=== PATIENT | female | born 1970 | race Caucasian/White ===

== ENCOUNTER 2019-10-15 10:38 | Inpatient (IN) | payer BC ==
[2019-10-15 11:21] LABS: ABS Eosinophils 0.1 10^3/ul (0-0.6); ABS Lymphocytes 1.3 10^3/ul (1.0-4.8); ABS Monocytes 0.4 10^3/ul (0-0.8); ABS Neutrophils 4.5 10^3/ul (1.5-7.7); Eosinophil % 2.3 %; Hematocrit 43 % (35-47); Hemoglobin 15.1 g/dL (12.0-16.0); Lymphocyte % 19.9 %; Mean Corpuscular HGB Conc 35 g/dL (31-36); Mean Corpuscular Hemoglobin 31 pg (27-31); Mean Corpuscular Volume 90 fL (80-97); Mean Platelet Volume 8.5 fL (7.4-10.4); Nucleated Red Blood Cells % 0.1; Platelet Count 217 10^3/uL (150-450); Red Cell Distribution Width 13 % (10-15); White Blood Count 6.4 10^3/uL (3.5-10.8)
[2019-10-15] MEDS ORDERED: Aspirin 81 mg CHEW TAB* 81 MG TAB.CHEW PO ONE (11:22)
--- NOTE | 2019-10-15 11:26 | ED ---
HPI Chest Pain - HPI Summary HPI Summary: The patient is a 49-year-old female presenting to [facility] with a chief complaint of an episode of chest pain two days ago. She reports that she had been recently sick with bronchitis which mostly resolved last week with medications, but she still had a lingering cough. Two days ago, she was coughing and had a sudden onset chest pain radiating into the upper arms described as tightness in the arteries and to the wrists described as on fire someone holding them as tightly as they could. She developed diaphoresis and nausea, and she saw that her O2 levels were low via at-home pulse ox monitor. She lied down on the floor in front of a fan before the chest pain resolved after 10-12 minutes. She has not experienced the pain since the isolated episode, but she did go to her primary care providers office this morning, and they noticed EKG changes from her prior a year ago when she had a negative cardiac workup with a Holter monitor for palpitations she had been experienced. She is feeling well in the ED now without any complaints. She denies any calf pain or swelling. No past medical history of cardiac disease, hypertension, diabetes. No history of blood clots, although she notes recent history of worsening varicose veins more on the left lower extremity. Nonsmoker, no EtOH, no substance use. Medications reviewed. Allergies noted. - History of Current Complaint Chief Complaint: EDChestPainROMI Time Seen by Provider: 10/15/19 10:43 Hx Obtained From: Patient Hx Last Menstrual Period: tubal ligation Onset/Duration: Started Days Ago, Resolved Timing: Lasting Minutes Initial Severity: Severe Current Severity: None Pain Intensity: 0 Pain Scale Used: 0-10 Numeric Chest Pain Location: Diffuse Chest Pain Radiates: Yes Chest Pain Radiates To:: Arm - bilateral, into wrists Character: Cough, Productive, Tightness Aggravating Factor(s): Nothing - thought secondary to cough Alleviating Factor(s): Rest, Spontaneous Resolution Associated Signs and Symptoms: Positive: Chest Pain, Diaphoresis, Nausea, Cough. Negative: Calf Pain/Swelling - Allergy/Home Medications Allergies/Adverse Reactions: Allergies Allergy/AdvReac Type Severity Reaction Status Date / Time codeine AdvReac Severe Nausea And Verified 10/15/19 12:13 Vomiting prochlorperazine AdvReac Severe See Comment Verified 10/15/19 12:13 Home Medications: Home Medications Acetaminophen TAB* [Tylenol TAB*] 325 mg PO Q4H PRN 10/15/19 [History Confirmed 10/15/19] Ibuprofen TAB* [Advil TAB*] 200 mg PO Q6H PRN 10/15/19 [History Confirmed ] PMH/Surg Hx/FS Hx/Imm Hx Endocrine/Hematology History: Denies: Hx Diabetes, Hx Thyroid Disease Cardiovascular History: Denies: Hx Hypercholesterolemia, Hx Hypertension, Hx Pacemaker/ICD Respiratory History: Denies: Hx Asthma, Hx Chronic Obstructive Pulmonary Disease (COPD) GI History: Denies: Hx Ulcer History: Denies: Hx Dialysis, Hx Renal Disease Sensory History: Denies: Hx Hearing Aid Psychiatric History: Denies: Hx Panic Disorder - Cancer History Hx Chemotherapy: No Hx Radiation Therapy: No - Surgical History Surgical History: Yes Surgery Procedure, Year, and Place: tubal ligation; C-sections; arthroscopic knee L; ectopic D&C; TONSILECTOMY - Immunization History Immunizations Up to Date: Yes Infectious Disease History: No Infectious Disease History: Denies: Hx Clostridium Difficile, Hx Hepatitis, Hx Human Immunodeficiency Virus (HIV), Hx of Known/Suspected MRSA, Hx Shingles, Hx Tuberculosis, Hx Known/ Suspected VRE, Hx Known/Suspected VRSA, History Other Infectious Disease, Traveled Outside the [place] in Last 30 Days - Family History Known Family History: Negative: Cardiac Disease, Hypertension, Diabetes - Social History Alcohol Use: None Hx Substance Use: No Substance Use Type: Reports: None Hx Tobacco Use: No Smoking Status (MU): Never Smoked Tobacco Have You Smoked in the Last Year: No Review of Systems Positive: Skin Diaphoresis Positive: Chest Pain Positive: Cough Positive: Nausea Negative: Myalgia - calves, Edema All Other Systems Reviewed And Are Negative: Yes Physical Exam - Summary Physical Exam Summary: Constitutional: Well-developed, Well-nourished, Alert. (-) Distressed Skin: Warm, Dry HENT: Normocephalic; Atraumatic Eyes: Conjunctiva normal Neck: Musculoskeletal ROM normal neck. (-) JVD, (-) Stridor, (-) Tracheal deviation Cardio: Rhythm regular, rate normal, Heart sounds normal; Intact distal pulses; The pedal pulses are 2+ and symmetric. Radial pulses are 2+ and symmetric. (-) Murmur Pulmonary/Chest wall: Effort normal. (-) Respiratory distress, (-) Wheezes, (-) Rales Abd: Soft, (-) tenderness, (-) Distension, (-) Guarding, (-) Rebound Musculoskeletal: (-) Edema Lymph: (-) Cervical adenopathy Neuro: Alert, Oriented x3 Psych: Mood and affect Normal Triage Information Reviewed: Yes Vital Signs On Initial Exam: Initial Vitals Temp Pulse Resp BP Pulse Ox 97.2 F 85 18 179/99 99 10/15/19 10:40 10/15/19 10:40 10/15/19 10:40 10/15/19 10:40 10/15/19 10:40 Vital Signs Reviewed: Yes Procedures - Sedation Patient Received Moderate/Deep Sedation with Procedure: No Diagnostics - Vital Signs Vital Signs Temp Pulse Resp BP Pulse Ox 10/15/19 11:11 16 175/83 10/15/19 11:09 29 10/15/19 10:40 97.2 F 85 18 179/99 99 - Laboratory Result Diagrams: 10/15/19 11:08 10/15/19 11:08 Lab Statement: Any lab studies that have been ordered have been reviewed, and results considered in the medical decision making process. - Radiology CXR Radiology Interpretation Completed By: Radiologist Summary of Radiographic Findings: Impression: No radiographic evidence for acute cardiopulmonary abnormality on this portable chest x-ray. Dr. Eason has reviewed this report. - EKG 1043 Cardiac Rate: NL EKG Rhythm: Sinus Rhythm Summary of EKG Findings: An EKG at 1043 reveals sinus rhythm at rate of 83 BPM. T wave inversions in aVL and V2-V6. Dr. Eason has reviewed and interpreted this EKG. Re-Evaluation - Re-Evaluation First Eval Re-Evaluation Time: 12:00 Comment: We discussed results and plan for admsision. Patient agreeable with plan. Chest Pain Course/Dx - Course Course Of Treatment: 49 y/o female presenting with isolated episode of CP radiating into the arms and wrists accompanied by nausea and diaphoresis occurring two days ago and lasting for 10-12 minutes before spontaneous resolution. No prior cardiac history. Recently had bronchitis which she attributed her symptoms to. Physical exam is negative for acute abnormalities. An EKG at 1043 reveals sinus rhythm at rate of 83 BPM, T wave inversions in aVL and V2-V6. Patient administered ASA. Blood work significant for elevated troponin of 0.35. Dr. Manuel from cardiology will consult for the patient. Dr. Christina from the hospitalist services accepts the patient for admission. Dr. Montenegro from interventional cardiology will consult for the patient instead of Dr. Manuel. IV access obtained. Patient placed on Heparin drip. CXR is negative for acute cardiopulmondary disease. Patient understands and agrees with plan. She is stable at this time. - Diagnoses Provider Diagnoses: NSTEMI (non-ST elevated myocardial infarction) - Provider Notifications Discussed Care Of Patient With: Robert Manuel - cardiology Time Discussed With Above Provider: 11:50 Instructed by Provider To: Other - I discussed the patients case with Dr. Manuel , who will consult for the patient. Dr. Christina accepts the patient for admission [[id number]]. Dr. Montenegro, interventional cardiology, will consult for the patient [[id number]]. Discharge ED - Sign-Out/Discharge Documenting (check all that apply): Patient Departure - Patient accepted for admission by Dr. Christina. - Discharge Plan Condition: Stable Disposition: ADMITTED TO [facility] Referrals: Nikita Kinsey MD [Primary Care Provider] - - Billing Disposition and Condition Condition: STABLE Disposition: Admitted to [facility] - Attestation Statements Document Initiated by Donna: Yes Documenting Scribe: Amber Dobson Provider For Whom Donna is Documenting (Include Credential): DO Kal Rizoibyesenia Attestation: Amber Noel scribed for Dr. Duane Eason DO on 10/15/19 at 1300. Scribe Documentation Reviewed: Yes Provider Attestation: The documentation as recorded by the Amber ruggiero accurately reflects the service I personally performed and the decisions made by me, Dr. Duane Eason DO Status of Donna Document: Viewed
[2019-10-15 11:27] LABS: INR 0.91 (0.82-1.09)
[2019-10-15 11:46] LABS: Troponin I 0.35 ng/mL (<0.03)
[2019-10-15 11:50] LABS: Albumin 4.6 g/dL (3.2-5.2); Albumin/Globulin Ratio 1.5 (1-3); BUN/Creatinine Ratio 25.7 (8-20); Calcium 9.1 mg/dL (8.6-10.3); EGFR African American 108.1 (>60); EGFR Non-African American 89.3 (>60); Globulin 3.1 g/dL (2-4); Potassium 3.6 mmol/L (3.5-5.0); Total Protein 7.7 g/dL (6.4-8.9)
[2019-10-15] MEDS ORDERED: Heparin DRIP 25,000 UNITS(*) 25,000 UNITS/500 ML BAG IV SCH (12:00)
[2019-10-15] MEDS ORDERED: Acetaminophen TAB* 325 MG PO PRN (12:24)
[2019-10-15] MEDS ORDERED: Metoprolol Tartrate TAB* 25 MG PO ONE (12:25)
[2019-10-15] MEDS ORDERED: Atorvastatin* 80 MG TAB PO ONE (12:25)
[2019-10-15 12:40] LABS: Activated Partial Thrombo Time 36.6 seconds (26.0-38.0)
[2019-10-15] MEDS ORDERED: Heparin VIAL(*) 5000 UNITS/ML VIAL (FIVE THOUSAND) IV SCH (13:00)
[2019-10-15] MEDS ORDERED: fentaNYL* 50 MCG/ML 2 ML VIAL (100 MCG VIAL) ONE (13:54)
[2019-10-15] MEDS ORDERED: VERAPAMIL 2.5 MG/ML 2 ML VIAL ** 5 mg/2 ml ONE (13:55)
[2019-10-15] MEDS ORDERED: Iohexol 350 (CONTRAST) 200 ML MDV IV ONE ×2 (13:55→13:56)
[2019-10-15] MEDS ORDERED: Heparin(*) 1000 UNIT/ML 10 ML VIAL CATH LAB IV ONE (13:55)
[2019-10-15] MEDS ORDERED: Midazolam* 1 MG/ML 5 ML VIAL (5 MG) ONE (13:55)
[2019-10-15] MEDS ORDERED: Lidocaine 1% INJ* 10 MG/ML 30 ML SDV ONE (13:55)
[2019-10-15] MEDS ORDERED: Heparin 2 UNITS/ML IVPREMIX* 2,000 ML IV ONE (13:55)
[2019-10-15] MEDS ORDERED: nitroGLYCERIN DRIP* 25,000 MCG/250 ML BTL ONE (13:55)
[2019-10-15] MEDS ORDERED: NS 0.9% 1000 ML** 1,000 ML IV SCH (15:15)
--- NOTE | 2019-10-15 16:00 | ECHO ---
*[facility]* [place] [address] Fax #: [phone] Transthoracic Echocardiogram Patient: Criss Manley : 1970 Study Date: 10/15/2019 Age: 49 Gender: F HR: 79 bpm Height: 68 in /172.7 cm BSA: 2.21 m^2 Weight: 239.5 lb /108.9 kg BMI: 36.5 kg/m^2 *Butadiene Converter Operator: * Olga Ceja *Referring Physician: * Olesya MontelongoReading Physician: * Robert Manuel MD Indications: Chest Pain, unspecified. History: Risk factors: Family history is significant for coronary artery disease. Conclusions Summary: - Left ventricle: Systolic function is normal. The estimated ejection fraction is 55-60%. Wall motion is normal; there are no regional wall motion abnormalities. - Right ventricle: Systolic function is normal. - Mitral valve: There is trace regurgitation. - Aortic valve: There is no evidence of stenosis. - Tricuspid valve: There is trace regurgitation. - Pulmonary arteries: Systolic pressure can not be accurately estimated. - Study data: No prior study is available for comparison. Study data: Transthoracic echocardiogram. Procedure: Transthoracic echocardiography was performed. Image quality was good. Complete 2D, spectral Doppler, and color flow Doppler. Location: Bedside. Patient status: Inpatient. Patient room number: ED 9. No prior study is available for comparison. Rhythm: Normal sinus rhythm. Findings Left ventricle: The cavity size is normal. Wall thickness is normal. Systolic function is normal. The estimated ejection fraction is 55-60%. Wall motion is normal; there are no regional wall motion abnormalities. Left ventricular diastolic function parameters are normal. Right ventricle: The cavity size is normal. Systolic function is normal. Ventricular septum: The ventricular septum is normal. Left atrium: The atrium is normal in size. Right atrium: The atrium is normal in size. Atrial septum: No defect or patent foramen ovale is identified. Mitral valve: The valve is structurally normal. There is no evidence of stenosis. There is trace regurgitation. Aortic valve: The valve is trileaflet. The leaflets are normal thickness. There is no evidence of stenosis. There is no significant regurgitation. Tricuspid valve: The valve is structurally normal. There is no evidence of stenosis. There is trace regurgitation. Pulmonic valve: The valve is structurally normal. There is no evidence of stenosis. There is trace regurgitation. Aorta: The aortic root appears normal. The aortic arch appears normal. Pericardium: There is no significant pericardial effusion. Pulmonary arteries: Systolic pressure can not be accurately estimated. Systemic veins: Inferior vena cava: The vessel is normal in size. There is (>= 50%) respiratory change in the IVC dimension. Measurements Left ventricle Value Ref Right atrium Value Ref APPLE, LAX 4.6 cm 3.8 - SI dim, ES 4.5 cm 3.4 - 5.3 5.2 ML dim, ES, A4C 3.7 cm 2.6 - 4.4 ESD, LAX (H) 3.6 cm 2.2 - SI dim, ES, A4C 4.5 cm 3.4 - 5.3 3.5 FS, LAX (L) 21 % Aortic valve Value Ref PW, ED, LAX (H) 1.2 cm 0.6 - Peak v, S 1.42 m/sec --------- 0.9 VTI, S 26.5 cm --------- FS (L) 21 % Mean grad, S 4.0 mm Hg --------- Mid-wall FS 10 % -------- Peak grad, S 8.0 mm Hg --------- PW, ED (H) 1.2 cm 0.6 - CHAITANYA, VTI 2.96 cm^2 --------- 0.9 CHAITANYA, Vmax 2.50 cm^2 --------- PW/ID, ED 0.26 -------- E', lat humphrey, TDI 11.4 cm/sec >=10.0 Mitral valve Value Ref E/e', lat humphrey, TDI 8 -------- Peak E 0.9 m/sec ------ --- E', med humphrey, TDI 8.7 cm/sec >=7.0 Peak A 0.88 m/sec --- ------ E/e', med humphrey, TDI 10 -------- Decel time 201 ms ------ --- E', avg, TDI 10.1 cm/sec -------- Peak grad, D 3.2 mm Hg ------ --- E/e', avg, TDI 9 <=14 Peak E/A ratio 1 --- ------ LVOT Value Ref Pulmonic valve Value Ref Diam, S 2.00 cm -------- Peak v, S 0.79 m/sec --------- Area 3.1 cm^2 -------- Peak grad, S 3.0 mm Hg --------- Peak ryan, S 1.13 m/sec -------- Peak grad, S 5 mm Hg -------- Aortic root Value Ref Mean grad, S 3 mm Hg -------- Root diam 3.0 cm <4.3 SV 79 ml -------- Ascending aorta Value Ref Ventricular septum Value Ref AAo AP diam, S 3.3 cm --------- IVS, ED (H) 1.0 cm 0.6 - 0.9 Aortic arch Value Ref Arch diam 2.1 cm --------- Right ventricle Value Ref APPLE, LAX 3.2 cm -------- Decending aorta Value Ref APPLE minor ax, A4C 3.1 cm 1.9 - Mao peak ryan 0.77 m/sec --------- mid 3.5 Inferior vena cava Value Ref Left atrium Value Ref Diam 2.0 cm --------- ML dim, A4C 4.2 cm -------- SI dim, A4C 5.4 cm -------- Vol/bsa, ES, 1-p 24 ml/m^2 11 - 40 A4C Vol/bsa, ES, A/L 30 ml/m^2 16 - 34 Legend: (L) and (H) david values outside specified reference range. Prepared and electronically signed by Robert Manuel MD 10/15/2019 15:59
[2019-10-15] MEDS ORDERED: Clopidogrel TAB* 300 MG PO ONE (16:24)
--- NOTE | 2019-10-15 16:48 | HP ---
CC: Dr. Kinsey; Dr. Manuel HISTORY AND PHYSICAL: DATE OF ADMISSION: 10/15/19 TIME OF EVALUATION: 12:15 p.m. PRIMARY CARE PROVIDER: Dr. Kinsey. CONSULTING STRAPPING MACHINE TENDER: Dr. Manuel. CHIEF COMPLAINT: Chest pain. HISTORY OF PRESENT ILLNESS: Ms. Manley is a 49-year-old female with a past medical history of obesi ty who presented to the emergency room after an episode of chest pain 2 days ago. The patient states that she recently completed a course of Augmentin, prednisone and Ventolin for bronchitis. She stat es that she still had a lingering cough and on 10/13/19, she had an episode of coughing and that was followed by retrosternal chest pain that she described as a severe twisting sensation and that radiat ed to both her arms especially her wrists. This was followed by diaphoresis, nausea, and the patient used her son's pulse ox monitor and saw that her oxygen levels were low. She lied on the floor in f ront of a fan and after 10 to 15 minutes, the pain subsided. She initially thought about calling 911 , but as the pain improved, she did not do it. On 10/14/19, she went to work and saw the school nurse and she was advised to see a physician and the patient went to see her PCP today and was told to come to the emergency room as her EKG had shown ne w changes. The patient states that she never had the cardiac workup in the past except for a Holter monitor last year when she was having palpitations and she states that the Holter was negative. She denies any other episodes of chest pain after the one on Monday. There is no shortness of breath, palpitations, dizziness, lightheadedness, diarrhea or urinary compla ints. The patient denies any recent traveling via bus or plane and no long drives. PAST MEDICAL HISTORY: Osteoarthritis. MEDICATION LIST: 1. Acetaminophen 325 mg p.o. q.4 hours p.r.n. pain or fever. 2. Ibuprofen 200 mg p.o. q.6 hours p.r.n. pain. 3. Fluoxetine 10 mg p.o. daily. 4. Meloxicam 15 mg p.o. daily. ALLERGIES: With CODEINE, the patient had nausea and vomiting and with PROCHLORPERAZINE, the patient had dyskinesia. FAMILY HISTORY: Her parents are alive and healthy. Her grandfather had a history of diabetes and ne eded a pacemaker. SOCIAL HISTORY: She denies history of tobacco, alcohol, or drug use. 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 Surrogate decision maker is her , Orestes Manley, phone number is [phone]. REVIEW OF SYSTEMS: A 14-point review of systems is performed and all the pertinent negatives and pos itives findings are in the HPI. PHYSICAL EXAMINATION GENERAL: The patient is a pleasant, middle-aged lady, sitting up in the ED stretcher, in no acute di stress. VITAL SIGNS: Temperature 97, heart rate 83, respiratory rate is 18, oxygen saturation 99% on room ai r, blood pressure is 153/89. HEENT: Pupils are equal. Moist mucous membranes. CHEST: Breath sounds present bilaterally with no added sounds. CVS: Normal S1, S2. Regular rate and rhythm. ABDOMEN: Soft, obese, nontender, nondistended. Bowel sounds are present. EXTREMITIES: No edema. No calf tenderness. NEUROLOGIC: She is alert and oriented x3. Able to move all 4 extremities. DIAGNOSTIC STUDIES/LAB DATA: The patient had a CBC that showed WBC of 6.4, hemoglobin of 15.1, francine tocrit of 43, platelets of 217 with 70% neutrophils. INR was 0.91, APTT 36. Chemistry showed the so dium of 142, potassium 3.6, chloride 106, bicarb 28, BUN of 18, creatinine of 0.7, glucose 82, calciu m 9.1. LFTs were normal. First troponin was 0.35. EKG done on 10/15/19 at 10:43 a.m. shows sinus rhythm at 83 beats per minute with mild T-wave inversi ons in V2 through V6 and as per ED provider, those are new when compared to her prior EKG in her PCP' s office in the past. Chest x-ray showed no radiographic evidence for acute cardiopulmonary abnormality. ASSESSMENT AND PLAN: Ms. Manley is a 49-year-old female with a past medical history of obesity who presented to the emergency room 2 days after an episode of severe chest pain, found to have new ische susan EKG changes and troponin elevation, suggestive of non-ST elevation myocardial infarction. 1. Non-ST elevation myocardial infarction. The patient will be admitted to medical floor. She alre juan received aspirin. She will be started on heparin drip as well as metoprolol and atorvastatin. C ardiology consultation was requested with Dr. Manuel and she will also have an echocardiogram. I will keep her n.p.o. for now as she will likely need a heart cath in the near future. If her cardiac cat h is negative, we may need to broaden her investigations. She had a recent respiratory infection, th is could be myocarditis or she may have Takotsubo, but considering her presentation, the principal di agnosis at this time is a non-ST elevation myocardial infarction. 2. DVT prophylaxis. The patient has a score of 2 and she is already on a heparin drip. 3. Code status is full. TIME SPENT: Approximately 60 minutes was spent with patient interview, medical records review, physi benjamin examination to complete this admission, more than half of this time was spent [id number] with t he patient in coordination of care. [id number]/[facility] #: [id number]
[2019-10-15] MEDS ORDERED: Ticagrelor* 90 MG TAB PO ONE (16:59)
--- NOTE | 2019-10-15 18:10 | CONS ---
CC: Dr. Nikita Kinsey * CARDIOLOGY CONSULTATION: DATE OF CONSULT: 10/15/19 REASON FOR CONSULT: Asked to see the patient by Dr. Herman after the patient was sent to the emergency room for an abnormal EKG with prior chest discomfort 2 days ago. HISTORY OF PRESENT ILLNESS: The patient is a pleasant 49-year-old white female with no prior known cardiac history. Specifically, she denies any history of myocardial infarction, congestive heart failure, or significant heart rhythm disturbance. She did have a Holter back a year ago that showed only infrequent PACs. She states that on Monday, she literally was getting ready to take her daughter somewhere and bent over. She had been sick with a bad virus within the past 2 weeks, but bent over and when she sat up she coughed and did not feel well, she started getting diaphoretic and nauseous and she also felt a ringing tightness in her chest, her wrist started hurting. The whole episode lasted some 12 minutes. She eventually did not seek any medical attention, but went to her family doctor who did an EKG, who found it abnormal and sent her to the emergency room. In the emergency room, the EKG revealed T-wave inversions in I, aVL and across the precordium. There were no Q waves present. She had abnormal blood tests with a troponin that was elevated at 0.35. Her SGOT was 28 , her SGPT was 32. As such, we were asked to see her for evaluation. Cardiac risk factors include negative history of hypertension, negative history of hyperlipidemia, negative history of diabetes. She does not smoke and she denied any family history of early coronary artery disease. PAST MEDICAL HISTORY: Significant for degenerative joint disease and mood swings for which she is both on meloxicam for the degenerative joint disease and fluoxetine for the mood swings. ALLERGIES: With CODEINE, the patient had nausea and vomiting and with PROCHLORPERAZINE, the patient had dyskinesia. FAMILY HISTORY: Parents are alive and healthy. No significant history of CAD. SOCIAL HISTORY: She denies any smoking, alcohol, or drug usage. 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 REVIEW OF SYSTEMS: As per the H and P with no additional findings. PHYSICAL EXAM: When I saw her revealed a pleasant female, in no acute distress. Neck was supple. No increased JVP. Carotid with good upstroke and volume without bruits. Conjunctivae are pink. Sclerae are clear. Mouth revealed moist mucosa. Lungs revealed no accessory muscle usage. There was good excursion. There were no active rales, rhonchi, or wheezes. Heart revealed no visible heaves, no palpable heaves or thrills. Normal S1, S2. No significant systolic or diastolic murmur. Abdomen is soft, nontender without organomegaly. Extremities are without clubbing, cyanosis, or neel pitting edema. Femoral artery pulses are present without bruits. Neuro: The patient is alert and oriented with normal mentation. Musculoskeletal: The patient moves all extremities appropriately. Psychological: The patient with normal affect. DIAGNOSTIC STUDIES/LAB DATA: EKG revealed T-wave inversion in I, aVL and V2 through V6 with no Q waves as mentioned. A bedside echocardiogram was performed, but has not been officially read yet. There appeared to be focal anterolateral wall motion abnormality. Laboratory results revealed a sodium of 142, potassium 3.6, chloride 106, bicarb 28, BUN and creatinine of 18 and 0.7. Troponin was 0.35 as mentioned. Hemoglobin and hematocrit were 15.1 and 43 with a platelet count of 217,000, white count of 6400. INR was 0.91. Chest x-ray revealed no acute pathology. OVERALL ASSESSMENT: Criss presents with a clearly grossly abnormal EKG seemingly out of proportion for wall motion abnormality that we see. Of note, her episode was 2 days ago and perhaps it was a brief ischemic episode. I believe clearly given this abnormal EKG and the troponin we need to rule out the presence of significant coronary artery disease or assess for the possibility of perhaps focal myocarditis, although currently her white count did not seem to be significantly abnormal and not with a significant viral type shift. The risks and benefits of cardiac catheterization were explained to her. She understood and wished to proceed. The patient had already received heparin bolus and heparin drip and full- dose aspirin. Further management will be made pending results of the cardiac catheterization. [id number]/[facility] #: [id number] [facility]ITAL[facility]
[2019-10-15 19:27] LABS: Troponin I 0.32 ng/mL (<0.03)
[2019-10-15] MEDS: Atorvastatin* 80 MG TAB PO SCH (21:03)
[2019-10-15] MEDS: Metoprolol Tartrate TAB* 25 MG PO SCH (21:03)
[2019-10-16] MEDS: Metoprolol Tartrate TAB* 25 MG PO SCH (04:06)
[2019-10-16 07:19] LABS: Cholesterol 197 mg/dL; HDL Cholesterol 37.5 mg/dL; LDL Cholesterol 128 mg/dL; Triglycerides 156 mg/dL
[2019-10-16 07:20] LABS: Troponin I 0.18 ng/mL (<0.03)
[2019-10-16] MEDS: Ticagrelor* 90 MG TAB PO SCH ×2 (08:36→20:54)
[2019-10-16] MEDS: FLUoxetine CAP* 10 MG PO SCH (08:36)
[2019-10-16] MEDS: Aspirin EC TAB* 81 MG TAB.EC PO SCH (08:36)
--- NOTE | 2019-10-16 08:45 | CATH ---
CC: Dr. Kinsey * CARDIAC CATHETERIZATION REPORT: DATE OF PROCEDURE: 10/15/19 - ROOM #453 INDICATION FOR THE PROCEDURE: The patient presents with markedly abnormal EKG and positive troponins, assessed for the presence of significant underlying coronary artery disease. PROCEDURE: Coronary arteriography, left heart catheterization, left ventriculography. CONSENT: The patient was interviewed and examined in the emergency room where the risks and benefits were explained. She understood them and wished to proceed. APPROACH UTILIZED: The right radial artery was assessed in the emergency room by ultrasound and found to be of a size appropriate to use as an approach, and as such, this was the approach used. PRECARDIAC CATHETERIZATION LABORATORY RESULTS: Hemoglobin and hematocrit of 15.1 and 43 with a platelet count of 217,000. BUN and creatinine of 18 and 0.7. Sodium 142, potassium 3.6, chloride 106, bicarb 28. INR 0.91. Troponin was 0.35. EQUIPMENT UTILIZED: 1. Right radial artery sheath - a 6-Cuban Glidesheath Slender. 2. Diagnostic coronary catheter was a 5-Cuban 4 curved TIG diagnostic catheter. 3. Diagnostic guidewire was a 260 length [place] curved guidewire. 4. Left heart catheterization catheter was a 5-Cuban TIG short radial catheter. 5. The closure device utilized was a regular length Vasc Band. MEDICATIONS GIVEN DURING THE PROCEDURE: The patient received a radial artery cocktail including 300 mcg of nitroglycerin and 3 mg of verapamil (of note, the patent had already received 4000 units of heparin in the emergency room and was on a heparin drip at the time of presentation to the bean sprout laborer). The patient also received 1% lidocaine locally. The patient had received full dose aspirin 324 mg in the emergency room. The patient received 1 mg of Versed and 12.5 mcg of fentanyl intravenously for sedation. DESCRIPTION OF PROCEDURE: The patient was brought to the cardiovascular laboratory where a formal time-out was performed. She was prepped and draped in sterile fashion, and under ultrasound guidance, the right radial artery was cannulated and the sheath was placed. Coronary arteriography was then performed followed by left hearth heart catheterization and left ventriculography utilizing a total of 24 cc of Omnipaque dye at a rate of 12 cc per second. Following this, the catheter and sheath were removed, then hemostasis was obtained with a Vasc Band. The reverse Barbkavehu was a B. The total contrast used was 65 cc of Omnipaque dye. The radiation exposure included 4.5 minutes of fluoro time. The air kerma radiation was 1218 milligray. The DAP radiation was 6812 microgray per meter squared. RESULTS: HEMODYNAMIC DATA: Left heart catheterization revealed central aortic pressure recorded 158/91 with a mean of 119. Left ventricular pressure 160 over left ventricular end- diastolic pressure of 21 to 23 mmHg. LEFT VENTRICULOGRAPHY: Performed in the YOUNG projection revealed a minimal hypokinesis of the mid anterior and apical region with well preserved overall left ventricular systolic function, overall EF estimated at 60%. No significant mitral regurgitation was seen. CORONARY ARTERIOGRAPHY: A. Left coronary artery: 1. Left main - widely patent with no significant obstruction noted. 2. Left anterior descending artery. There was no significant stenosis seen throughout the course of the left anterior descending artery. It should be noted the mid portion appeared to have an area that was intramyocardial, but there was no evidence of significant systolic milking or significant systolic obstruction. The LAD supplied a moderate-sized bifurcating first diagonal branch with a very thread- like second diagonal branch short nature paralleling the LAD seen best in the AP cranial view. It then supplied a third small caliber diagonal branch. No significant obstruction was seen throughout the course of the vessel. 3. Circumflex artery - a nondominant vessel supplying a thin first obtuse marginal branch, a moderate bifurcating mid obtuse marginal branch, and ending in several small caliber low-lying posterior left ventricular branches. No significant obstruction was seen throughout the course of the vessel. Of note, a minimal 10% to 15% narrowing at the ostium of the circumflex was seen. B: Right coronary artery - a dominant vessel supplying the PDA and 2 posterior left ventricular branches including several acute marginal branches. There was no significant obstruction seen throughout the course of the vessel. OVERALL ASSESSMENT: A minimal evidence of wall motion abnormality involving the mid anterior toward apical region with well-preserved overall normal left ventricular systolic function. Increase in left ventricular end diastolic pressure suggests decreased LV diastolic compliance. No significant stenotic coronary artery disease in any major vessels or branches could be identified. At this point in time, the patient will be maintained on beta-cricket therapy in light of the area of mid LAD that appeared to be somewhat intramyocardial and dual antiplatelet therapy for acute coronary syndrome will be given. Her troponins will be serially followed to make sure there is no rise and that indeed they steadily decrease as would be expected if her event was on Monday. This was discussed with Dr. Herman, the hospitalist involved with the case, who will be involved with her management. [id number]/[facility] #: [id number] RAFID
[2019-10-16] MEDS ORDERED: Clopidogrel TAB* 75 MG PO SCH (09:00)
[2019-10-16] MEDS ORDERED: Iohexol 350* (CONTRAST) 500 ML MDV IV ONE (09:52)
[2019-10-16 10:04] LABS: ALT 30 U/L (7-52); AST 23 U/L (13-39); Albumin 4.4 g/dL (3.2-5.2); Albumin/Globulin Ratio 1.5 (1-3); Alkaline Phosphatase 73 U/L (34-104); Anion Gap 12 mmol/L (2-11); BUN/Creatinine Ratio 17.4 (8-20); Blood Urea Nitrogen 12 mg/dL (6-24); CO2 Carbon Dioxide 21 mmol/L (22-32); Calcium 9.1 mg/dL (8.6-10.3); Chloride 107 mmol/L (101-111); EGFR African American 109.9 (>60); EGFR Non-African American 90.8 (>60); Glucose 96 mg/dL (70-100); Potassium 4.1 mmol/L (3.5-5.0); Sodium 140 mmol/L (135-145); Total Protein 7.4 g/dL (6.4-8.9)
[2019-10-16] MEDS: Metoprolol Succinate XL TAB* 25 MG PO SCH (10:11)
[2019-10-16 12:24] LABS: Indirect Bilirubin 1.6 mg/dL (0.3-1.0)
--- NOTE | 2019-10-16 15:32 | PN ---
Subjective Date of Service: 10/16/19 Interval History: HOSPITALIST PROGRESS NOTE Patient seen and examined at bedside. Care reviewed and d/w Karolyn Jones RN. She feels well today, no further episodes of chest pain. Family History: Unchanged from Admission Social History: Unchanged from Admission Past Medical History: Unchanged from Admission Objective Active Medications: Acetaminophen (Tylenol Tab*) 325 mg PO Q4H PRN PRN Reason: PAIN - MODERATE Aspirin (Aspirin Ec Tab*) 81 mg PO DAILY [facility] Last Admin: 10/16/19 08:36 Dose: 81 mg Atorvastatin Calcium (Lipitor*) 80 mg PO 2100 [facility] Last Admin: 10/15/19 21:03 Dose: 80 mg Fluoxetine HCl (Prozac Cap*) 10 mg PO DAILY [facility] Last Admin: 10/16/19 08:36 Dose: 10 mg Heparin Sodium (Porcine) (Heparin Vial(*)) 0 units IV .PER PROTOCOL [facility] Last Admin: 10/15/19 12:54 Dose: 4,000 units Metoprolol Succinate (Toprol Xl Tab*) 25 mg PO DAILY [facility] Last Admin: 10/16/19 10:11 Dose: 25 mg Ticagrelor (Brilinta*) 90 mg PO BID [facility] Last Admin: 10/16/19 08:36 Dose: 90 mg Vital Signs - 8 hr 10/16/19 10/16/19 10/16/19 08:00 10:01 12:00 Temperature 98.1 F 97.9 F Pulse Rate 59 64 53 Respiratory 20 20 Rate Blood Pressure 141/79 150/64 (mmHg) O2 Sat by Pulse 98 100 Oximetry Oxygen Devices in Use Now: None Appearance: Pleasant middle aged lady sitting up in a chair in NAD Eyes: No Scleral Icterus Ears/Nose/Mouth/Throat: Mucous Membranes Moist Neck: Trachea Midline Respiratory: Symmetrical Chest Expansion and Respiratory Effort, Clear to Auscultation Cardiovascular: RRR - Normal S1 and S2 Neurological: Alert and Oriented x 3, NL Muscle Strength and Tone Result Diagrams: 10/15/19 11:08 10/16/19 06:46 Assess/Plan/Problems-Billing Assessment: Mrs Manley is a 49yo F with PMH of osteroarthritis and obesity, who presented to ED 48h after an episode of severe chest pain, founf to have a NSTEMI. - Patient Problems (1) NSTEMI (non-ST elevated myocardial infarction) Comment: - Cardiology input appreciated - cath showed no significant stenosis, but mid LAD had a intramyocardial area, so spasm could explain her episode. - Continue Aspirin, Brilinta, statin, Metoprolol. - Myocarditis secondary to the viral illness she experienced recently is on the differential, as well as PE. V/Q scan showed a small GEORGE defect, and it was read as low risk for PE. With her h/o, will pursue CTA chest. (2) DVT prophylaxis Comment: - SQ heparin. (3) Full code status
[2019-10-16] MEDS: Atorvastatin* 80 MG TAB PO SCH (20:53)
[2019-10-16] MEDS: Heparin VIAL(*) 5000 UNITS/ML VIAL (FIVE THOUSAND) SUBCUT SCH (20:54)
[2019-10-16] MEDS ORDERED: Calcium Carbonate CHEW TAB* 500 MG (TUMS) PO ONE (23:39)
[2019-10-17] MEDS: Heparin VIAL(*) 5000 UNITS/ML VIAL (FIVE THOUSAND) SUBCUT SCH (05:31)
[2019-10-17] MEDS: Aspirin EC TAB* 81 MG TAB.EC PO SCH (08:23)
[2019-10-17] MEDS: FLUoxetine CAP* 10 MG PO SCH (08:24)
[2019-10-17] MEDS: Ticagrelor* 90 MG TAB PO SCH (08:24)
[2019-10-17] MEDS: Metoprolol Succinate XL TAB* 25 MG PO SCH (08:24)
[2019-10-17 08:39] VITALS: BP 127/63
--- NOTE | 2019-10-18 12:20 | DS ---
CC: Dr. Kinsey; Dr. Montenegro; Dr. Korey Glez DISCHARGE SUMMARY: DATE OF ADMISSION: 10/15/19 DATE OF DISCHARGE: 10/17/19 PRIMARY CARE PROVIDER: Dr. Kinsey. DEBT RECOVERY OFFICER: Dr. Montenegro and Dr. Korey Glez. DISCHARGE DIAGNOSIS: Non-ST elevation myocardial infarction. SECONDARY DIAGNOSES: 1. Osteoarthritis. 2. Obesity with a BMI of 37.5. MEDICATION LIST: 1. Acetaminophen 325 mg p.o. q.4 hours p.r.n. pain or fever. 2. Fluoxetine 10 mg p.o. daily. New medications: 1. Aspirin 81 mg p.o. daily. 2. Atorvastatin 80 mg p.o. at bedtime. 3. Metoprolol succinate 25 mg p.o. daily. 4. Nitroglycerin 0.4 mg sublingual q.5 minutes p.r.n. chest pain. 5. Ticagrelor 90 mg p.o. b.i.d. Meloxicam and ibuprofen were discontinued. HOSPITAL COURSE: Mrs. Manley is a 49-year-old female with a past medical history as stated above at presented to the emergency room 2 days after an episode of severe retrosternal chest pain radiatin g to both arms. In the ED, she had an EKG with significant T-wave inversions from V2 to V6 and those were new when compared to her prior EKG from her PCP's office as per the ED provider. Her initial t roponin was 0.35 and the patient was admitted to telemetry floor under the impression of a known ST e levation MT. She had a transthoracic echocardiogram that showed an ejection fraction of 55% to 60%, wall motion wa s described as normal. She was taken to the slabbing machine operator and cardiac catheterization showed a widely pat ent left main. There was no significant stenosis throughout course of the LAD, but it should be note d that the mid portion appeared to have an area that was intramyocardial, but there was no evidence o f significant systolic milking or significant systolic obstruction. Circumflex was a nondominant ves shaq supplying a thin first OM and no significant obstruction was seen. Of note, a minimal 10% to 15% narrowing at the ostium or the circumflex was seen. RCA had no significant obstructions. During th e study, there was minimal evidence of wall motion abnormality involving the mid anterior toward apic al region with well preserved overall normal LV systolic function. There was no significant stenotic coronary artery disease in any major vessels or branches that could be identified. The recommendati on was for the patient to be maintained on beta- cricket therapy in light of the area of mid LAD that appeared to be somewhat intramyocardial and dual-antiplatelet therapy for acute coronary syndrome. The impression is that the patient probably had an acute coronary event on that Monday when she exper ienced a severe chest pain and this could be secondary to muscle spasm in the area of that intramyoca rdial LAD. The differential also included pulmonary embolism. The patient had a CTA of the chest th at was negative for PE as well as a lower extremity Doppler with no DVT. Another possibility would b e that her troponin elevation and EKG changes could be secondary to a viral myocarditis as the patien t had a respiratory infection couple of weeks ago. She had no further episodes of chest pain while in the hospital. Troponin trended down to 0.18 on and the patient was asymptomatic. Lab results included A1c of 5.4 and an LDL of 128 with a HDL of 37.5. She will be discharged home on the above mentioned medications, but depending on Cardiology opinion during her followup, may be her atorvastatin dose could be adjusted. 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 The patient was advised to avoid excessive physical exertion until cleared by Cardiology. 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 She is medically stable for discharge at this time. PHYSICAL EXAMINATION: Vital Signs: Temperature 97.2, heart rate is 64, respiratory rate is 20, oxyg en saturation is 97% on room air, blood pressure is 127/63. General: The patient is a pleasant obes e middle-aged lady, sitting up in a chair, in no acute distress. CVS: Normal S1 and S2. Regular ra te and rhythm. Chest: Breath sounds present bilaterally with no added sounds. Extremities: No deirdre a. She has good pulses and capillary refill to the right wrist and right hand. Neuro: She is alert and oriented x3. Able to move all 4 extremities. DIET: Heart healthy diet. ACTIVITIES: As tolerated. Avoid excessive physical exertion. The patient received instructions reg arding limitations post cath. DISPOSITION: To home. STATUS: Inpatient. CONDITION AT THE TIME OF DISCHARGE: Fair. Please keep in mind this is a summarized version of this patient's hospital stay. If you need more in formation, please feel free to call me at [phone] or please obtain the full medical records. TIME SPENT: Approximately 45 minutes was spent to complete this discharge. [id number]/[facility] #: [id number]
== END 2019-10-17 11:05 | disposition home or self-care (01) | DRG 190 ==
LOC: ED 10:38 → MEDTELE 12:21
PROVIDERS: ADMIT Internal Medicine; ATTEND Internal Medicine
PROC: B211YZZ Fluoroscopy of Multiple Coronary Arteries using Other Contrast (ICD-10-PCS; 2019-10-15)
PROC: B215YZZ Fluoroscopy of Left Heart using Other Contrast (ICD-10-PCS; 2019-10-15)
PROC: 4A023N7 Measurement of Cardiac Sampling and Pressure, Left Heart, Percutaneous Approach (ICD-10-PCS; principal; 2019-10-15 14:00)
DX: I21.4 Non-ST elevation (NSTEMI) myocardial infarction (principal); I40.0 Infective myocarditis; E66.9 Obesity, unspecified; I24.9 Acute ischemic heart disease, unspecified; M19.90 Unspecified osteoarthritis, unspecified site; Z68.37 Body mass index [BMI] 37.0-37.9, adult; Z79.899 Other long term (current) drug therapy; Z88.5 Allergy status to narcotic agent; Z88.8 Allergy status to other drugs, medicaments and biological substances; Z83.3 Family history of diabetes mellitus
CPT/HCPCS: 36415; 71045; 71046; 71275; 78582; 80053; 80061; 82247; 82248; 83036; 84484; 85025; 85610; 85730; 93005; 93306; 93458; 93970; 99156; 99157; 99284; A9270-GY; A9540; A9558; J1644; J2250; J3010

== ENCOUNTER 2019-11-21 12:20 | Emergency (ER) | payer BC ==
[2019-11-21] MEDS ORDERED: Nitroglycerin TAB 0.4 MG* 0.4 MG TAB SL ONE (12:42)
[2019-11-21] MEDS ORDERED: Aspirin 81 mg CHEW TAB* 81 MG TAB.CHEW PO ONE (12:42)
--- NOTE | 2019-11-21 12:43 | ED ---
HPI Chest Pain - HPI Summary HPI Summary: 49 year old F presenting to [facility] with a chief complaint of sharp chest pain and nausea since this morning. The patient rates the pain 2/10 in severity. Symptoms aggravated by nothing. Symptoms alleviated by nothing. Patient reports that her nausea has resolved. She denies any shortness of breath, pain or swelling in her legs, or taking any nitro. Medication list reviewed. Allergy list reviewed. Home Medications Medication Instructions Recorded Confirmed Type Fluoxetine HCl 10 mg PO DAILY 02/06/14 10/15/19 History Acetaminophen TAB* [Tylenol TAB*] 325 mg PO Q4H PRN 10/15/19 10/15/19 History Aspirin EC TAB* [Ecotrin EC Low 81 mg PO DAILY #30 tab.ec 10/17/19 Rx Dose 81 MG*] Atorvastatin* [Lipitor 80 MG*] 80 mg PO 2100 #30 tab 10/17/19 Rx Metoprolol Succinate XL TAB* 25 mg PO DAILY #30 tab.xl 10/17/19 Rx [Toprol XL TAB*] Nitroglycerin TAB 0.4 MG* 0.4 mg SL Q5M PRN #30 tab 10/17/19 Rx Ticagrelor* [Brilinta 90 MG*] 90 mg PO BID #60 tab 10/17/19 Rx - History of Current Complaint Time Seen by Provider: 11/21/19 12:34 Hx Obtained From: Patient Hx Last Menstrual Period: tubal ligation Onset/Duration: Started Hours Ago Timing: Constant Character: Sharp/Stabbing Aggravating Factor(s): Nothing Alleviating Factor(s): Nothing Associated Signs and Symptoms: Negative: Shortness of Breath, Calf Pain/Swelling - Additional Pertinent History Primary Care Physician: [id number] - Allergy/Home Medications Allergies/Adverse Reactions: Allergies Allergy/AdvReac Type Severity Reaction Status Date / Time codeine AdvReac Severe Nausea And Verified 10/15/19 12:13 Vomiting prochlorperazine AdvReac Severe See Comment Verified 10/15/19 12:13 Home Medications: Home Medications Fluoxetine HCl 10 mg PO DAILY 02/06/14 [History Confirmed 11/21/19] Acetaminophen TAB* [Tylenol TAB*] 325 mg PO Q4H PRN 10/15/19 [History Confirmed 11/21/19] Aspirin EC TAB* [Ecotrin EC Low Dose 81 MG*] 81 mg PO DAILY #30 tab.ec 10/17/19 [Rx Confirmed 11/21/19] Metoprolol Succinate XL TAB* [Toprol XL TAB*] 25 mg PO DAILY #30 tab.xl [Rx Confirmed 11/21/19] Nitroglycerin TAB 0.4 MG* 0.4 mg SL Q5M PRN #30 tab 10/17/19 [Rx Confirmed 11/20] Atorvastatin* [Lipitor 80 MG*] 40 mg PO DAILY 11/21/19 [History Confirmed ] Calcium Carbonate CHEW TAB* [Tums*] 500 mg PO DAILY PRN 11/21/19 [History Confirmed 11/21/19] Isosorbide Mononitrate ER TAB* [Imdur ER TAB*] 60 mg PO DAILY 30 Days #30 tab.er 11/21/19 [Rx] Meloxicam(NF) [Mobic(NF)] 15 mg PO EVERY OTHER DAY 11/21/19 [History Confirmed 11/21/19] PMH/Surg Hx/FS Hx/Imm Hx Endocrine/Hematology History: Denies: Hx Diabetes, Hx Thyroid Disease Cardiovascular History: Denies: Hx Hypercholesterolemia, Hx Hypertension, Hx Pacemaker/ICD Respiratory History: Denies: Hx Asthma, Hx Chronic Obstructive Pulmonary Disease (COPD) GI History: Reports: Hx Gall Bladder Disease Denies: Hx Ulcer History: Denies: Hx Dialysis, Hx Renal Disease Sensory History: Denies: Hx Contacts or Glasses, Hx Hearing Aid Opthamlomology History: Denies: Hx Contacts or Glasses Psychiatric History: Denies: Hx Panic Disorder - Cancer History Hx Chemotherapy: No Hx Radiation Therapy: No - Surgical History Surgery Procedure, Year, and Place: tubal ligation; C-sections; arthroscopic knee L; ectopic D&C; TONSILECTOMY Infectious Disease History: Denies: Hx Clostridium Difficile, Hx Hepatitis, Hx Human Immunodeficiency Virus (HIV), Hx of Known/Suspected MRSA, Hx Shingles, Hx Tuberculosis, Hx Known/ Suspected VRE, Hx Known/Suspected VRSA, History Other Infectious Disease - Family History Known Family History: Negative: Cardiac Disease, Hypertension, Diabetes - Social History Alcohol Use: None Hx Substance Use: No Substance Use Type: Reports: None Hx Tobacco Use: No Smoking Status (MU): Never Smoked Tobacco Have You Smoked in the Last Year: No Review of Systems Positive: Chest Pain Negative: Shortness Of Breath Positive: Nausea Musculoskeletal: Negative - Leg pain or swelling All Other Systems Reviewed And Are Negative: Yes Physical Exam - Summary Physical Exam Summary: Constitutional: Well-developed, Well-nourished, Alert. (-) Distressed Skin: Warm, Dry HENT: Normocephalic; Atraumatic Eyes: Conjunctiva normal Neck: Musculoskeletal ROM normal neck. (-) JVD, (-) Stridor, (-) Tracheal deviation Cardio: Rhythm regular, rate normal, Heart sounds normal; Intact distal pulses; Radial pulses are 2+ and symmetric. (-) Murmur Pulmonary/Chest wall: Effort normal. (-) Respiratory distress, (-) Wheezes, (-) Rales Abd: Soft, (-) tenderness, (-) Distension, (-) Guarding, (-) Rebound Musculoskeletal: (-) Edema Lymph: (-) Cervical adenopathy Neuro: Alert, Oriented x3 Psych: Mood and affect Normal Triage Information Reviewed: Yes Vital Signs Reviewed: Yes Procedures - Sedation Patient Received Moderate/Deep Sedation with Procedure: No Diagnostics - Laboratory Result Diagrams: 11/21/19 12:38 11/21/19 12:38 Lab Statement: Any lab studies that have been ordered have been reviewed, and results considered in the medical decision making process. - Radiology Chest x-ray Radiology Interpretation Completed By: Radiologist Summary of Radiographic Findings: No active cardiopulmonary disease is noted. ED physician has reviewed this report. - EKG 12:22 Cardiac Rate: NL - 73 BPM EKG Rhythm: Sinus Rhythm Summary of EKG Findings: T-Wave inversion in leads V2-V5 which are new compared to EKG done on 10/17/2019. ED physician has reviewed and interpreted this EKG. Re-Evaluation - Re-Evaluation First Eval Re-Evaluation Time: 15:06 Comment: The patient is feeling better but still has slight pressure, will give her Amalox. The decrease in her pain was not due to Nitroglycerin. Second Eval Re-Evaluation Time: 16:03 Change: Improved Comment: The patient is asymptomatic at this time. Chest Pain Course/Dx - Course Course Of Treatment: Patient is here with an episode of chest pain and nausea. Patient was admitted last month for similar episode where she had an elevated troponin. Patient had a heart catheter at that time which showed no stentable lesions but she did have an area of wall motion abnormality. Patient had an EKG today which showed T-wave inversions in the lateral leads which are new compared to the last EKG. Patient's first EKG in the system did have T-wave inversions are more severe than today but those went to normal after her catheter procedure. Patient had serial troponins were negative. Patient was pain free at the time of discharge. Cardiology was called and they recommended outpatient follow-up and she had her meloxicam switched to Imdur - Diagnoses Provider Diagnoses: Chest pain - Provider Notifications Discussed Care Of Patient With: Rere Beltran Time Discussed With Above Provider: 13:46 Instructed by Provider To: Other - Discussed with Dr. Beltran who advised to call Dr. Glez. [13:52] Discussed with Dr. Glez who said if the patient is pain free and rules out, can start her on Imdur and follow-up. If continued pain she should be admitted overnight. Discharge ED - Sign-Out/Discharge Documenting (check all that apply): Patient Departure - Discharge Plan Condition: Improved Disposition: HOME Prescriptions: Isosorbide Mononitrate ER TAB* [Imdur ER TAB*] 60 mg PO DAILY 30 Days #30 tab.er Patient Education Materials: Chest Pain (ED) Referrals: Korey Glez DO [Medical Doctor] - Nikita Kinsey MD [Primary Care Provider] - Additional Instructions: Please start your new medication Please stop the Meloxicam Please call Dr. Glez's office for an appointment NIMA Please return if you have severe chest pain, trouble breathing, any other concerning symptoms - Billing Disposition and Condition Condition: IMPROVED Disposition: Home - Attestation Statements Document Initiated by Kalibe: Yes Documenting Scribe: Dariana Owens Provider For Whom Donna is Documenting (Include Credential): Bennie Zurita MD Scribe Attestation: Dariana Noel scribed for Bennie Zurita MD on 11/21/19 at 1856. Scribe Documentation Reviewed: Yes Provider Attestation: The documentation as recorded by the Dariana ruggiero accurately reflects the service I personally performed and the decisions made by , Bennie Zurita MD Status of Scribe Document: Viewed
[2019-11-21 12:47] LABS: ABS Eosinophils 0.1 10^3/ul (0-0.6); ABS Lymphocytes 1.2 10^3/ul (1.0-4.8); ABS Monocytes 0.3 10^3/ul (0-0.8); ABS Neutrophils 4.3 10^3/ul (1.5-7.7); Eosinophil % 1.7 %; Hematocrit 42 % (35-47); Hemoglobin 15.2 g/dL (12.0-16.0); Mean Corpuscular HGB Conc 36 g/dL (31-36); Mean Corpuscular Hemoglobin 32 pg (27-31); Mean Corpuscular Volume 89 fL (80-97); Mean Platelet Volume 8.8 fL (7.4-10.4); Nucleated Red Blood Cells % 0.1; Platelet Count 218 10^3/uL (150-450); Red Blood Count 4.69 10^6 /uL (3.70-4.87); Red Cell Distribution Width 13 % (10-15); White Blood Count 5.9 10^3/uL (3.5-10.8)
[2019-11-21 12:51] LABS: INR 0.97 (0.82-1.09)
[2019-11-21 13:04] LABS: Albumin 4.5 g/dL (3.2-5.2); Albumin/Globulin Ratio 1.6 (1-3); BUN/Creatinine Ratio 27.7 (8-20); Calcium 10.1 mg/dL (8.6-10.3); EGFR African American 117.7 (>60); EGFR Non-African American 97.3 (>60); Globulin 2.8 g/dL (2-4); Potassium 3.9 mmol/L (3.5-5.0); Total Bilirubin 1.6 mg/dL (0.2-1.0); Total Protein 7.3 g/dL (6.4-8.9)
--- OUTSIDE RECORDS SUMMARY | 2019-11-21 13:29 | XMS REPORT | Continuity of Care Document ---
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 Problems Active Problems Provider Date Essential hypertension Robson Montenegro M.D., [facility], [facility] Onset: 10/22/2019 Encounter for planned postprocedural Robson Montenegro M.D., [facility], [facility] Onset: wound closure Social History Type Date Description Comments Sex Unknown ETOH Use Denies alcohol use Tobacco Use Start: Unknown Patient has never smoked Recreational Drug Use Denies Drug Use Smoking Status Reviewed: 11/13/19 Patient has never smoked Exercise Type/Frequency Exercises regularly Allergies, Adverse Reactions, Alerts Active Allergies Reaction Severity Comments Date Compazine 09/20/2016 Codeine makes her throw up 09/20/2016 Medications Active Medications SIG Qnty Indications Ordering Provider Date Atorvastatin Calcium 1 by mouth 90tabs Korey Glez, 11/13/2019 40mg every day DO FACC Tablets Prozac 1 by mouth Unknown 10mg Capsules every day Nitroglycerin 1 sl q5mins x3 Unknown 0.4mg Tablets as needed for Sub chest pain Acetaminophen 500 mg 1 tab as Unknown needed Aspirin Ec Low Dose 1 by mouth 90tabs Korey Glez, 81mg every day DO FACC Tablets Metoprolol Succinate ER 1 by mouth 90tabs Korey Glez, every day DO FACC 25mg Tablets ER 24HR Immunizations Description No Information Available Vital Signs Date Vital Result Comment 11/13/2019 3:58pm Height 64.75 inches 5'4.75" Weight 245.00 lb with shoes Heart Rate 62 /min BP Systolic Sitting 112 mmHg Rue lg cuff BP Diastolic Sitting 70 mmHg Rue lg cuff BP Systolic Standing 118 mmHg Rue lg cuff BP Diastolic Standing 86 mmHg Rue lg cuff Respiratory Rate 16 /min BMI (Body Mass Index) 41.1 kg/m2 10/30/2019 4:03pm Height 64.75 inches 5'4.75" Heart Rate 74 /min BP Systolic 131 mmHg home cuff BP Diastolic 75 mmHg home cuff BP Systolic Sitting 128 mmHg Manual cuff BP Diastolic Sitting 72 mmHg Manual cuff Respiratory Rate 18 /min Results Description No Information Available Procedures Date Code Description Status 10/15/2019 36219 Left Heart Cath. Incl S/I Coronaries, Angio S/I V Gram If Completed Done 10/15/2019 49074 ECHO Transthorasic Realtime 2D W Doppler & Color Flow Hosp Completed Medical Devices Description No Information Available Encounters Type Date Location Provider Dx Diagnosis Office Visit 11/13/2019 [facility] Korey Glez, I25.2 Old myocardial 4:20p Of [facility] DO FACC infarction M06.4 Inflammatory polyarthropathy E78.5 Hyperlipidemia, unspecified Office Visit 10/30/2019 3:30p [facility] Nurse Visit I10 Essential (primary) Of Doping Supervisor IC hypertension Office Visit 10/22/2019 8:00a [facility] Robson Montenegro, Z48.1 [facility], planned [facility] postprocedural wound closure I10 Essential (primary) hypertension Z48.812 Encntr for surgical aftcr following surgery on the circ sys Office Visit 10/17/2019 [place] Ajay Dacosta I21.4 Non-St elevation 1:15p Assocmichael M.D. ([facility]) myocardial Hospitalists infarction Office Visit 10/16/2019 [facility] Robson Montenegro, R94.31 Abnormal 12:04p Of Doping Supervisor AT [facility] [place], [facility], electrocardiogram [facility] [ECG] [EKG] R79.89 Other specified abnormal findings of blood chemistry Office Visit 10/16/2019 1:14p [place] Ajay Dacosta I21.4 Non-St elevation Assoc,michael Christina M.D. (Nstemi) Hospitalists myocardial infarction Office Visit 10/15/2019 3:20p [facility] Robson Montenegro, R07.9 Chest pain, Of Doping Supervisor AT [facility] [place], NOEMI, unspecified [facility] R94.31 Abnormal electrocardiogram [ECG] [EKG] R79.89 Other specified abnormal findings of blood chemistry Office Visit 10/15/2019 1:14p [facility] Olesya I21.4 Non-St elevation Assoc,michael Christina M.D. (Nstemi) Hospitalists myocardial infarction Assessments Date Code Description Provider 11/13/2019 I25.2 Old myocardial infarction Korey Glez, DO [facility] 11/13/2019 M06.4 Inflammatory polyarthropathy Korey Glez, DO [facility] 11/13/2019 E78.5 Hyperlipidemia, unspecified Korey Glez, DO FAC 10/30/2019 I10 Essential (primary) hypertension Nurse Visit IC 10/22/2019 Z48.1 Encounter for planned postprocedural Robson Montenegro M.D., [facility], wound closure [facility] 10/22/2019 I10 Essential (primary) hypertension Robson Montenegro M.D., [facility], [facility] 10/22/2019 Z48.812 Encounter for surgical aftercare Robson Montenegro M.D., [facility], following surgery on the circulatory [facility] system 10/17/2019 I21.4 Non-St elevation (Nstemi) myocardial Olesya Christina M.D. infarction 10/16/2019 R94.31 Abnormal electrocardiogram [ECG] [EKG] Robson Montenegro M.D., [facility], [facility] 10/16/2019 R79.89 Other specified abnormal findings of Robson Montenegro M.D., [facility], blood chemistry [facility] 10/16/2019 I21.4 Non-St elevation (Nstemi) myocardial Olesya Christina M.D. infarction 10/15/2019 R07.9 Chest pain, unspecified Robert Manuel M.D. 10/15/2019 R07.9 Chest pain, unspecified Robson Montenegro M.D., [facility], [facility] 10/15/2019 R94.31 Abnormal electrocardiogram [ECG] [EKG] Robson Montenegro M.D., [facility], [facility] 10/15/2019 R79.89 Other specified abnormal findings of Robson Montenegro M.D., [facility], blood chemistry [facility] 10/15/2019 I21.4 Non-St elevation (Nstemi) myocardial Olesya Christina M.D. infarction Plan of Treatment 11/13/2019 - Korey Glez, DO FACCI25.2 Old myocardial infarctionNew Therapy: Cardiac RehabComments:As we discussed, stop brilinta and restart meloxicam. Take these medications with food. We are not sure of the heart attack mechanism. I would assume the worst that it was related to a plaque and thrombus that spontaneously reperfused. If that is the case, we would want your LDL bad cholesterol less than 70 (and ideally less than 55). Your was 128 in the hospital. You are going to start atorvastatin (lipitor) 40 mg once a day and have Dr. Kinsey recheck your blood work in at least 1 month from starting. Please have him send us a copy.I think you would benefit from cardiac rehab. Please get their number and call to schedule an appointment.Follow up:Please give patient phone number for cardiac rehab f/u 2020M06.4 Inflammatory ufhdutgtmpfuaxlG22.5 Hyperlipidemia, unspecified Functional Status Description No Information Available Mental Status Description No Information Available Referrals Description No Information Available
--- OUTSIDE RECORDS SUMMARY | 2019-11-21 13:29 | XMS REPORT | Continuity of Care Document ---
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 Incl S/I Coronaries, Angio S/I V Gram If Completed Done 10/15/2019 60116 ECHO Transthorasic Realtime 2D W Doppler & Color Flow Hosp Completed Medical Devices Description No Information Available Encounters Type Date Location Provider Dx Diagnosis Office Visit 11/13/2019 [facility] Korey Glez, I25.2 Old myocardial 4:20p Of [employer] DO FACC infarction M06.4 Inflammatory polyarthropathy E78.5 Hyperlipidemia, unspecified Office Visit 10/30/2019 3:30p [facility] Nurse Visit I10 Essential (primary) Of [employer]man IC hypertension Office Visit 10/22/2019 8:00a [facility] Robson Montenegro, Z48.1 Encounter for Of Cut Pressman AT [facility] [place], [facility], planned [facility] postprocedural wound closure I10 Essential (primary) hypertension Z48.812 Encntr for surgical aftcr following surgery on the circ sys Office Visit 10/17/2019 [facility] I21.4 Non-St elevation 1:15p Assoc,michael Christina M.D. (Nstemi) myocardial Hospitalists infarction Office Visit 10/16/2019 [facility] Robson Montenegro, R94.31 Abnormal 12:04p Of [employer] AT [facility] [place], [facility], electrocardiogram [facility] [ECG] [EKG] R79.89 Other specified abnormal findings of blood chemistry Office Visit 10/16/2019 1:14p [facility] Olesya I21.4 Non-St elevation michael Wylie M.D. (Nstemi) Hospitalists myocardial infarction Office Visit 10/15/2019 3:20p [facility] Robson Montenegro, R07.9 Chest pain, Of Cut Pressman AT [facility] [place], [facility], unspecified [facility] R94.31 Abnormal electrocardiogram [ECG] [EKG] R79.89 Other specified abnormal findings of blood chemistry Office Visit 10/15/2019 1:14p [facility] Olesya I21.4 Non-St elevation Assmichael ahmmer M.D. (Nstemi) Hospitalists myocardial infarction Assessments Date Code Description Provider 11/13/2019 I25.2 Old myocardial infarction Korey Glez, DO [facility] 11/13/2019 M06.4 Inflammatory polyarthropathy Korey Glez, DO [facility] 11/13/2019 E78.5 Hyperlipidemia, unspecified Korey Glez, DO [facility] 10/30/2019 I10 Essential (primary) hypertension Nurse Visit IC 10/22/2019 Z48.1 Encounter for planned postprocedural Robson Montenegro M.D., [facility], wound closure [facility] 10/22/2019 I10 Essential (primary) hypertension Robson Montenegro M.D., [facility], [facility] 10/22/2019 Z48.812 Encounter for surgical aftercare Robson Montenegro M.D., [facility], following surgery on the circulatory [facility] 10/17/2019 R94.31 Abnormal electrocardiogram [ECG] [EKG] Amari Stanford M.D., [facility], [facility] 10/17/2019 I21.4 Non-St elevation (Nstemi) myocardial Olesya Christina M.D. infarction 10/16/2019 R94.31 Abnormal electrocardiogram [ECG] [EKG] Amari Stanford M.D., [facility], [facility] 10/16/2019 R94.31 Abnormal electrocardiogram [ECG] [EKG] Robson Montenegro M.D., [facility], [facility] 10/16/2019 R79.89 Other specified abnormal findings of Robson Montenegro M.D., [facility], blood chemistry [facility] 10/16/2019 I21.4 Non-St elevation (Nstemi) myocardial Olesya Christina M.D. infarction 10/15/2019 R07.9 Chest pain, unspecified Robert Manuel M.D. 10/15/2019 R07.9 Chest pain, unspecified Robson Montenegro M.D., [facility], [facility] 10/15/2019 R94.31 Abnormal electrocardiogram [ECG] [EKG] Robson Montenegro M.D., [facility], [facility] 10/15/2019 R79.89 Other specified abnormal findings of Robson Montenegro M.D., [facility], blood chemistry [facility] 10/15/2019 I21.4 Non-St elevation (Nstemi) myocardial Olesya [...] number for cardiac rehab f/u 2020M06.4 Inflammatory wsnufstutdiptfsF13.5 Hyperlipidemia, unspecified Functional Status Description No Information Available Mental Status Description No Information Available Referrals Description No Information Available
--- OUTSIDE RECORDS SUMMARY | 2019-11-21 13:29 | XMS REPORT | Continuity of Care Document ---
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 Incl S/I Coronaries, Angio S/I V Gram If Completed Done 10/15/2019 44145 ECHO Transthorasic Realtime 2D W Doppler & Color Flow Hosp Completed Medical Devices Description No Information Available Encounters Type Date Location Provider Dx Diagnosis Office Visit 11/13/2019 [facility] Korey Glez, I25.2 Old myocardial 4:20p Of [employer] DO FACC infarction M06.4 Inflammatory polyarthropathy E78.5 Hyperlipidemia, unspecified Office Visit 10/30/2019 3:30p [facility] Nurse Visit I10 Essential (primary) Of Bolt Maker IC hypertension Office Visit 10/22/2019 8:00a [facility] Robson Montenegro, Z48.1 Encounter for Of Bolt Maker AT [facility] [place], [facility], planned [facility] postprocedural wound closure I10 Essential (primary) hypertension Z48.812 Encntr for surgical aftcr following surgery on the circ sys [facility]-St [facility] 1:15p Assoc,michael Christina M.D. (Nstemi) myocardial Hospitalists infarction Office Visit 10/16/2019 [facility] Robson Montenegro, R94.31 Abnormal 12:04p Of [employer]olt Maker AT [facility] [place], [facility], electrocardiogram [facility] [ECG] [EKG] R79.89 Other specified abnormal findings of blood chemistry Office Visit 10/16/2019 1:14p [facility] Olesya I21.4 Non-St elevation michael Wylie M.D. (Nstemi) Hospitalists myocardial infarction Office Visit 10/15/2019 3:20p [facility] Robson Montenegro, R07.9 Chest pain, Of Bolt Maker AT [facility] [place], [facility], unspecified [facility] R94.31 Abnormal electrocardiogram [ECG] [EKG] R79.89 Other specified abnormal findings of blood chemistry Office Visit 10/15/2019 1:14p [facility] Olesya I21.4 Non-St elevation Assmichael hammer M.D. (Nstemi) Hospitalists myocardial infarction Assessments Date Code Description Provider 11/13/2019 I25.2 Old myocardial infarction Korey Glez, DO [facility] 11/13/2019 M06.4 Inflammatory polyarthropathy Korey Glez, DO [facility] 11/13/2019 E78.5 Hyperlipidemia, unspecified Korey Glez, DO [facility] 10/30/2019 I10 Essential (primary) hypertension Nurse Visit IC 10/22/2019 Z48.1 Encounter for planned postprocedural Robson Montenegro M.D., [facility], wound closure [facility] 10/22/2019 I10 Essential (primary) hypertension Robson Montenegro M.D., [facility], [facility] 10/22/2019 Z48.812 Encounter for surgical aftercare Robson Montenegro M.D., [facility], [facility] 10/17/2019 R94.31 Abnormal electrocardiogram [ECG] [EKG] Amari Stanford M.D., [facility], [facility] 10/17/2019 I21.4 Non-St elevation (Nstemi) myocardial Olesya Christina M.D. infarction 10/16/2019 R94.31 Abnormal electrocardiogram [ECG] [EKG] Amari Stanford M.D., [facility], [facility] 10/16/2019 R94.31 Abnormal electrocardiogram [ECG] [EKG] Robson Montenegro M.D., [facility], [facility] 10/16/2019 R79.89 Other specified abnormal findings of Robson Montenegro M.D., [facility], blood chemistry [facility] 10/16/2019 I21.4 Non-St elevation (Nstemi) myocardial Olesya Christina M.D. infarction 10/15/2019 R07.9 Chest pain, unspecified Robert Manuel M.D. 10/15/2019 R07.9 Chest pain, unspecified Robson Montenegro M.D., [facility], [facility] 10/15/2019 R94.31 Abnormal electrocardiogram [ECG] [EKG] Robson Montenegro M.D., [facility], [facility] 10/15/2019 R79.89 Other specified abnormal findings of Robson Montenegro M.D., [facility], blood chemistry [facility] 10/15/2019 I21.4 Non-St elevation (Nstemi) myocardial Olesya [...] number for cardiac rehab f/u 2020M06.4 Inflammatory dubvefzpuooxvpmH58.5 Hyperlipidemia, unspecified Functional Status Description No Information Available Mental Status Description No Information Available Referrals Description No Information Available
--- OUTSIDE RECORDS SUMMARY | 2019-11-21 13:30 | XMS REPORT | Continuity of Care Document ---
:1970 External Reference #:[id number] Author Name Pramod Gaines Care Team Providers Name Role Phone Nikita Kinsey MD - Family Medicine Care Team Information Sign Builder [phone] Problems Description No Information Available Social History Type Date Description Comments Sex Unknown ETOH Use Denies alcohol use Tobacco Use Start: Unknown Patient has never smoked Exercise Type/Frequency Exercises regularly Allergies, Adverse Reactions, Alerts Active Allergies Reaction Severity Comments Date Compazine 09/20/2016 Codeine makes her throw up 09/20/2016 Medications Active Medications SIG Qnty Indications Ordering Provider Date Meloxicam once daily with Unknown 15mg Tablets food Prozac 1 by mouth every Unknown 10mg Capsules day Immunizations Description No Information Available Vital Signs Date Vital Result Comment 10/27/2016 8:34am Height 64.75 inches 5'4.75" Weight 232.00 lb Heart Rate 72 /min BP Systolic 120 mmHg BP Diastolic 90 mmHg Respiratory Rate 16 /min Pain Level 3 BMI (Body Mass Index) 38.9 kg/m2 09/20/2016 9:11am Height 64.75 inches 5'4.75" Weight 232.00 lb Heart Rate 64 /min BP Systolic 126 mmHg BP Diastolic 90 mmHg Pain Level 6 BMI (Body Mass Index) 38.9 kg/m2 Results Description No Information Available Procedures Description No Information Available Medical Devices Description No Information Available Encounters Description No Information Available Assessments Description No Information Available Plan of Treatment Future Appointment(s):11/05/2019 8:00 am - Korey Glez DO FACC at [facility]10/27/2016 - Nikita Brito M.D.S93.504D Unspecified sprain of right lesser toe(s), subsequent encounterNew Therapy:Rehab ReferralFollow up: As needed Functional Status Description No Information Available Mental Status Description No Information Available Referrals Description No Information Available
--- OUTSIDE RECORDS SUMMARY | 2019-11-21 13:30 | XMS REPORT | Continuity of Care Document ---
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 Incl S/I Coronaries, Angio S/I V Gram If Completed Done 10/15/2019 56883 ECHO Transthorasic Realtime 2D W Doppler & Color Flow Hosp Completed Medical Devices Description No Information Available Encounters Type Date Location Provider Dx Diagnosis Office Visit 10/30/2019 [facility] Nurse Visit IC I10 Essential ( primary) 3:30p Of [facility] hypertension Office Visit 10/22/2019 [facility] Robson Montenegro, Z48.1 Encounter for planned 8:00a [facility], postprocedural wound [facility] closure I10 Essential (primary) hypertension Z48.812 Encntr for surgical aftcr following surgery on the circ sys Office Visit 10/17/2019 [facility] Olesya I21.4 Non-St elevation 1:15p Assmichael hammer M.D. ([facility]) myocardial Hospitalists infarction Office Visit 10/16/2019 [facility] Robson Montenegro, R94.31 Abnormal 12:04p Of [facility] AT [facility] Curtis, [facility], [facility] [[facility] [EKG] R79.89 Other specified abnormal findings of blood chemistry [facility] michael Wylie M.D. ([facility]) Hospitalists myocardial infarction Office Visit 10/15/2019 3:20p [facility] Robson Montenegro, R07.9 Chest pain, Of [facility] [place], [facility], unspecified [facility] R94.31 Abnormal electrocardiogram [ECG] [EKG] R79.89 Other specified abnormal findings of blood chemistry Office Visit 10/15/2019 1:14p [facility] Olesya I21.4 Non-St elevation Assoc,michael Christina M.D. ([facility]) Hospitalists myocardial infarction Assessments Date Code Description Provider 11/13/2019 I25.2 Old myocardial infarction Korey SLe Glez, DO [facility] 11/13/2019 M06.4 Inflammatory polyarthropathy Korey Liliya Glez, DO [facility] 11/13/2019 E78.5 Hyperlipidemia, unspecified Korey Liliya Glez, DO [facility] 10/30/2019 I10 Essential (primary) hypertension Nurse Visit IC 10/22/2019 Z48.1 Encounter for planned postprocedural Robson Montenegro M.D., [facility], wound closure [facility] 10/22/2019 I10 Essential (primary) hypertension Robson Montenegro M.D., [facility], [facility] 10/22/2019 Z48.812 Encounter for surgical aftercare Robson Montenegro M.D., [facility], following surgery on the circulatory [facility] system 10/17/2019 I21.4 Non-St elevation ([facility]) myocardial Olesya Christina M.D. infarction 10/16/2019 R94.31 Abnormal electrocardiogram [ECG] [EKG] Robson Montenegro M.D., [facility], [facility] 10/16/2019 R79.89 Other specified abnormal findings of Robson Montenegro M.D., [facility], blood chemistry [facility] 10/16/2019 I21.4 Non-St elevation ([facility]) myocardial Olesya Christina M.D. infarction 10/15/2019 R07.9 Chest pain, unspecified Robert Manuel M.D. 10/15/2019 R07.9 Chest pain, unspecified Robson Montenegro M.D., [facility], [facility] 10/15/2019 R94.31 Abnormal electrocardiogram [ECG] [EKG] Robson Montenegro M.D., [facility], [facility] 10/15/2019 R79.89 Other specified abnormal findings of Robson Montenegro M.D., [facility], blood chemistry [facility] 10/15/2019 I21.4 Non-St elevation ([facility]stemi) myocardial Olesya [...] number for cardiac rehab f/u 2020M06.4 Inflammatory hewncexijpazvboZ84.5 Hyperlipidemia, unspecified Functional Status Description No Information Available Mental Status Description No Information Available Referrals Description No Information Available
--- OUTSIDE RECORDS SUMMARY | 2019-11-21 13:30 | XMS REPORT | Continuity of Care Document ---
:1970 External Reference #:[id number] Author Name Robson Montenegro M.D., [facility], [facility] (transmitted by agent of provider Eleni Davis) Address [address] [address] Care Team Providers Name Role Phone Nikita Kinsey MD - Family Medicine Care Team Information Merchandise Adjustment Clerk Problems Active Problems Provider Date Essential hypertension Robson Montenegro M.D., [facility], [facility] Onset: 10/22/2019 Encounter for planned postprocedural Robson Montenegro M.D., [facility], [facility] Onset: wound closure Social History Type Date Description Comments Sex Unknown ETOH Use Denies alcohol use Tobacco Use Start: Unknown Patient has never smoked Recreational Drug Use Denies Drug Use Smoking Status Reviewed: 10/22/19 Patient has never smoked Exercise Type/Frequency Exercises regularly Allergies, Adverse Reactions, Alerts Active Allergies Reaction Severity Comments Date Compazine 09/20/2016 Codeine makes her throw up 09/20/2016 Medications Active Medications SIG Qnty Indications Ordering Provider Date Prozac 1 by mouth every Unknown 10mg Capsules day Nitroglycerin 1 sl q5mins x3 Unknown 0.4mg Tablets as needed for Sub chest pain Acetaminophen 500 mg 1 tab as Unknown needed Aspirin Ec Low Dose 1 by mouth every Unknown 81mg day Tablets DR Atorvastatin Calcium 1 by mouth every Unknown 80mg day Tablets Metoprolol Succinate ER 1 by mouth every Unknown day 25mg Tablets ER 24HR Brilinta 1 tab by mouth Unknown 90mg Tablets twice a day Immunizations Description No Information Available Vital Signs Date Vital Result Comment 10/22/2019 8:01am Height 64.75 inches 5'4.75" Weight 243.12 lb w/ shoes Heart Rate 64 /min L. radial, regular BP Systolic Sitting 144 mmHg LA, reg cuff BP Diastolic Sitting 98 mmHg LA, reg cuff BP Systolic Standing 148 mmHg LA, reg cuff BP Diastolic Standing 96 mmHg LA, reg cuff BMI (Body Mass Index) 40.8 kg/m2 Ejection Fraction 55-60% 10/15/19 10/27/2016 8:34am Height 64.75 inches 5'4.75" Weight 232.00 lb Heart Rate 72 /min BP Systolic 120 mmHg BP Diastolic 90 mmHg Respiratory Rate 16 /min Pain Level 3 BMI (Body Mass Index) 38.9 kg/m2 Results Description No Information Available Procedures Description No Information Available Medical Devices Description No Information Available Encounters Description No Information Available Assessments Date Code Description Provider 10/22/2019 Z48.1 Encounter for planned postprocedural Robson Montenegro M.D., [facility], [facility] wound closure 10/22/2019 I10 Essential (primary) hypertension Robson Montenegro M.D., [facility], [facility] Plan of Treatment Future Appointment(s):10/30/2019 3:30 pm - Nurse Visit IC at [facility]11/05/2019 8:00 am - Korey Glez DO FACC at [facility]10/22/2019 - Robson Montenegro M.D., [facility], LRDWXI96.1 Encounter for planned postprocedural wound closureComments:Your catheterization site appears to be healing well.Recommendations:Continue current medications and Follow up with your primary geology instructor, Dr. Korey Glez as scheduled.I10 Essential (primary ) hypertensionNew Orders:Blood Pressure Check, Scheduled: 10/30/19Comments:Your blood pressure appears in borderline range. At home with sitting it is in good range.Recommendations:We will set up a BP check in one week and follow up with Dr. Glez as scheduled. Functional Status Description No Information Available Mental Status Description No Information Available Referrals Description No Information Available
[2019-11-21] MEDS ORDERED: Al Hydrox/Mg Hydrox/Simet LIQ* 30 ML UDC PO ONE (15:03)
[2019-11-21 16:12] VITALS: BP 131/63
== END 2019-11-21 16:18 | disposition home or self-care (01) ==
LOC: ED 12:20
DX: R07.9 Chest pain, unspecified (principal); Z98.51 Tubal ligation status; Z79.82 Long term (current) use of aspirin; Z79.899 Other long term (current) drug therapy; Z88.5 Allergy status to narcotic agent; Z88.8 Allergy status to other drugs, medicaments and biological substances
CPT/HCPCS: 36415; 71046; 80053; 84484; 85025; 85610; 93005; 99283; A9270-GY

== ENCOUNTER 2020-09-11 10:31 | Inpatient (IN) ==
[2020-09-11 14:14] LABS: Hematocrit 44 % (35-47); Hemoglobin 14.6 g/dL (12.0-16.0); Mean Corpuscular HGB Conc 33 g/dL (31-36); Mean Corpuscular Hemoglobin 31 pg (27-31); Mean Corpuscular Volume 93 fL (80-97); Mean Platelet Volume 8.5 fL (7.4-10.4); Platelet Count 248 10^3/uL (150-450); Red Blood Count 4.76 10^6 /uL (3.70-4.87); Red Cell Distribution Width 13 % (10-15); White Blood Count 13.1 10^3/uL (3.5-10.8)
[2020-09-11] MEDS ORDERED: Piperacillin/Tazobac ADVAN 3.375 GM in NS 0.9% 100 ml BAG 100 ML IV ONE (14:23)
[2020-09-11 14:34] LABS: ABS Lymphocytes 1.3 10^3/ul (1.0-4.8); ABS Monocytes 0.9 10^3/ul (0-0.8); ABS Neutrophils 10.8 10^3/ul (1.5-7.7); Eosinophil % 0.3 %; Lymphocyte % 9.6 %; Nucleated Red Blood Cells % 0.1
[2020-09-11] MEDS ORDERED: Iodixanol (CONTRAST) 320 MG/ML 100 ML SDV IV ONE (14:36)
[2020-09-11 14:52] LABS: ALT 24 U/L (7-52); Albumin 4.4 g/dL (3.2-5.2); Albumin/Globulin Ratio 1.3 (1-3); Alkaline Phosphatase 92 U/L (34-104); BUN/Creatinine Ratio 27.5 (8-20); Blood Urea Nitrogen 19 mg/dL (6-24); C Reactive Protein 155.82 mg/L (<8.01); CO2 Carbon Dioxide 27 mmol/L (22-32); Calcium 9.6 mg/dL (8.6-10.3); Chloride 101 mmol/L (101-111); EGFR African American 109.4 (>60); EGFR Non-African American 90.4 (>60); Globulin 3.4 g/dL (2-4); Glucose 92 mg/dL (70-100); Sodium 137 mmol/L (135-145); Total Protein 7.8 g/dL (6.4-8.9)
[2020-09-11 15:35] LABS: Anion Gap 9 mmol/L (2-11)
[2020-09-11] MEDS ORDERED: oxyCODONE/Acetamin 5/325 mg TAB PO PRN (16:33)
[2020-09-11] MEDS ORDERED: Zosyn per Pharmacy NOTE FOLLOW UP PRN (16:34)
[2020-09-11 16:41] LABS: Urine Appearance Turbid; Urine Bilirubin Negative (Negative); Urine Blood 1+ (Negative); Urine Color Yellow; Urine Glucose Negative (Negative); Urine Ketones Negative (Negative); Urine Nitrite Negative (Negative); Urine Protein 2+(100 mg/dL) (Negative); Urine Specific Gravity 1.034 (1.010-1.030); Urine Urobilinogen Negative (Negative)
[2020-09-11 17:00] LABS: Urine Bacteria Absent (Absent); Urine Red Blood Cell Absent (Absent); Urine Squamous Epithelial Cell Present (Absent); Urine White Blood Cell Absent (Absent)
[2020-09-11] MEDS: ZOSYN 3.375 GM Q8H per EXTENDED INFUSION IV SCH (21:14)
[2020-09-11] MEDS: NS 0.9% 1,000 ML IV SCH (21:15)
[2020-09-12] MEDS: ZOSYN 3.375 GM Q8H per EXTENDED INFUSION IV SCH ×2 (04:41→11:42)
[2020-09-12] MEDS: NS 0.9% 1,000 ML IV SCH ×2 (04:45→13:16)
[2020-09-12] MEDS: Isosorbide Mononit ER 30mg TAB PO SCH (09:17)
[2020-09-12] MEDS ORDERED: Vancomycin 2,250 MG in NS 0.9% 250 ml 250 ML IVPB SCH (13:00)
[2020-09-12] MEDS ORDERED: Vancomycin per Pharmacy 1 EA NOTE FOLLOW UP PRN (13:13)
[2020-09-12] MEDS ORDERED: Vancomycin 2000 MG X 1 dose, then per Pharmacy PROTOCOL IVPB ONE (14:00)
[2020-09-12] MEDS ORDERED: Vancomycin 1000 MG in NS 0.9% 250 ML IVPB SCH (18:30)
[2020-09-12] MEDS: Vancomycin 1000 MG in NS 0.9% 250 ML IVPB SCH (20:00)
[2020-09-12] MEDS ORDERED: ZOSYN 3.375 GM IV SCH (21:00)
[2020-09-12] MEDS: ZOSYN 3.375 GM IV SCH (22:34)
[2020-09-13] MEDS: Vancomycin 1000 MG in NS 0.9% 250 ML IVPB SCH ×2 (00:37→07:30)
[2020-09-13] MEDS: ZOSYN 3.375 GM IV SCH ×2 (05:01→11:06)
[2020-09-13 05:33] LABS: Vancomycin Trough 27.2 mcg/mL
[2020-09-13] MEDS ORDERED: Vancomycin Trough Check NOTE FOLLOW UP ONE (06:00)
[2020-09-13 08:46] LABS: EGFR African American 65.2 (>60); EGFR Non-African American 53.9 (>60)
[2020-09-13] MEDS: Isosorbide Mononit ER 30mg TAB PO SCH (09:22)
[2020-09-13 11:36] LABS: ABS Lymphocytes 0.5 10^3/ul (1.0-4.8); ABS Monocytes 0.8 10^3/ul (0-0.8); ABS Neutrophils 9.2 10^3/ul (1.5-7.7); Eosinophil % 0.3 %; Hematocrit 34 % (35-47); Hemoglobin 11.6 g/dL (12.0-16.0); Mean Corpuscular HGB Conc 34 g/dL (31-36); Mean Corpuscular Hemoglobin 31 pg (27-31); Mean Corpuscular Volume 90 fL (80-97); Platelet Count 194 10^3/uL (150-450); Red Blood Count 3.75 10^6 /uL (3.70-4.87); Red Cell Distribution Width 13 % (10-15); White Blood Count 10.6 10^3/uL (3.5-10.8)
[2020-09-13 11:47] LABS: Albumin 3.3 g/dL (3.2-5.2); Albumin/Globulin Ratio 1.1 (1-3); BUN/Creatinine Ratio 12.5 (8-20); Calcium 8.4 mg/dL (8.6-10.3); EGFR African American 57.8 (>60); EGFR Non-African American 47.7 (>60); Potassium 3.8 mmol/L (3.5-5.0); Total Bilirubin 0.9 mg/dL (0.2-1.0); Total Protein 6.3 g/dL (6.4-8.9)
[2020-09-13] MEDS: Vancomycin 1,250 MG in NS 0.9% 250 ml 250 ML IVPB SCH ×2 (12:22→20:08)
[2020-09-13] MEDS: CMCS:Meloxicam 7.5 mg TAB (NF) PO SCH (12:23)
[2020-09-13] MEDS: Magnesium Hydroxide LIQ 30 ML UDC PO PRN (13:58)
[2020-09-13] MEDS: Lactated Ringers 1000 ml BAG 1,000 ML IV SCH (18:28)
[2020-09-14] MEDS: Lactated Ringers 1000 ml BAG 1,000 ML IV SCH (04:04)
[2020-09-14] MEDS: Vancomycin 1,250 MG in NS 0.9% 250 ml 250 ML IVPB SCH ×2 (04:04→13:09)
[2020-09-14 07:53] LABS: Albumin 3.3 g/dL (3.2-5.2); Calcium 8.5 mg/dL (8.6-10.3); EGFR African American 39.7 (>60); EGFR Non-African American 32.8 (>60); Globulin 3.3 g/dL (2-4); Total Bilirubin 0.7 mg/dL (0.2-1.0); Total Protein 6.6 g/dL (6.4-8.9)
[2020-09-14] MEDS: Isosorbide Mononit ER 30mg TAB PO SCH (09:10)
[2020-09-14] MEDS: Magnesium Hydroxide LIQ 30 ML UDC PO PRN (09:10)
[2020-09-14] MEDS ORDERED: Vancomycin Trough Check NOTE FOLLOW UP ONE (11:30)
[2020-09-14 12:15] LABS: EGFR African American 41.2 (>60)
[2020-09-14 12:19] LABS: Vancomycin Trough 29.8 mcg/mL
[2020-09-15] MEDS ORDERED: Vancomycin Random Level NOTE FOLLOW UP ONE (07:00)
[2020-09-15] MEDS: Isosorbide Mononit ER 30mg TAB PO SCH (08:48)
[2020-09-15 09:12] LABS: Albumin 3.3 g/dL (3.2-5.2); Albumin/Globulin Ratio 0.9 (1-3); BUN/Creatinine Ratio 7.8 (8-20); Calcium 8.8 mg/dL (8.6-10.3); EGFR African American 43.3 (>60); EGFR Non-African American 35.8 (>60); Globulin 3.5 g/dL (2-4); Potassium 3.9 mmol/L (3.5-5.0); Total Bilirubin 0.8 mg/dL (0.2-1.0); Total Protein 6.8 g/dL (6.4-8.9)
[2020-09-15 09:24] LABS: Vancomycin Random 19.5 mcg/mL
[2020-09-15] MEDS: Calcium Carb (TUMS) 500 mg CHEW TAB PO PRN (15:35)
[2020-09-15] MEDS: Vancomycin 750 MG in NS 0.9% 250 ml 250 ML IVPB SCH (19:55)
[2020-09-15] MEDS: CMCS:Meloxicam 7.5 mg TAB (NF) PO SCH (20:16)
[2020-09-16] MEDS ORDERED: Vancomycin Trough Check NOTE FOLLOW UP ONE (05:30)
[2020-09-16 05:31] LABS: EGFR African American 42.7 (>60); EGFR Non-African American 35.3 (>60)
[2020-09-16 05:34] LABS: Vancomycin Trough 18.1 mcg/mL
[2020-09-16] MEDS: Vancomycin 750 MG in NS 0.9% 250 ml 250 ML IVPB SCH (06:02)
[2020-09-16] MEDS: Calcium Carb (TUMS) 500 mg CHEW TAB PO PRN (10:15)
[2020-09-16] MEDS: Magnesium Hydroxide LIQ 30 ML UDC PO PRN (10:15)
[2020-09-16] MEDS: Isosorbide Mononit ER 30mg TAB PO SCH (10:16)
[2020-09-16 12:19] VITALS: BP 149/81
[2020-09-16] MEDS ORDERED: Sulfamethox/Trimethoprim DS TAB 800/160 mg PO SCH (21:00)
[2020-09-17] MEDS ORDERED: Vancomycin Trough Check NOTE FOLLOW UP ONE (05:30)
== END 2020-09-16 17:40 | disposition home or self-care (01) | DRG 531 ==
LOC: ED 10:31 → SSU 15:04
PROVIDERS: ADMIT Obstetrics & Gynecology; ATTEND Obstetrics & Gynecology